=== PATIENT | female | born 2000 | race Caucasian/White ===

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

== ENCOUNTER → 2022-01-06 14:23 | Outpatient (CLI) | payer OTHER, MEDICAID, SELFPAY | PROVIDERS: Family Provider Family Medicine; PCP Family Medicine; Visit Provider Physician Assistant | DX: J02.9 Acute pharyngitis, unspecified (principal) | CPT/HCPCS: 87070; 87880 ==

== ENCOUNTER → 2022-06-08 11:02 | Outpatient (CLI) | payer OTHER, MEDICAID, SELFPAY ==
[2022-06-08 11:59] LABS: Strep Grp A by PCR Rapid Negative (Negative)
== END ==
PROVIDERS: Family Provider Family Medicine; PCP Family Medicine; Visit Provider Family Medicine
DX: J02.9 Acute pharyngitis, unspecified (principal)
CPT/HCPCS: 87070; 87147; 87651

== ENCOUNTER → 2023-05-16 10:23 | Outpatient (CLI) | payer OTHER, MEDICAID, SELFPAY ==
[2023-05-16 11:14] LABS: Add Manual Diff / Slide Review NO; Basophils Absolute Auto 0 /uL (0-100); Basophils Percent Auto 0.9 % (0-2); Eosinophils Absolute Auto 100 /uL (0-450); Eosinophils Percent Auto 1.1 % (2-4); Hematocrit 41.4 % (36-46); Hemoglobin 14.3 g/dL (12.0-16.0); Lymphocytes Absolute Auto 1900 /uL (1100-4500); Lymphocytes Percent Auto 34.5 % (25-40); Mean Corpuscular HGB Conc 34.4 % (30-36); Mean Corpuscular Hemoglobin 30.8 PG (26-34); Mean Corpuscular Volume 89.4 fL (80-100); Monocytes Absolute Auto 400 /uL (0-900); Monocytes Percent Auto 8.1 % (3-14); Neutrophils Absolute Auto 3000 /uL (1500-7000); Neutrophils Percent Auto 55.4 % (50-75); Platelet Count 263 X10^3/uL (150-400); Red Blood Cell Count 4.63 X10^6/uL (4.0-5.2); Red Cell Distribution Width 13.3 % (11.6-14.8); White Blood Cell Count 5.4 X10^3/uL (4.5-11.0)
[2023-05-16 11:39] LABS: Alanine Aminotransferase 19 IU/L (<35); Albumin 4.3 g/dL (3.5-5.0); Albumin Globulin Ratio 1.5 (1.0-2.8); Alkaline Phosphatase 58 U/L (38-126); Aspartate Aminotransferase 26 IU/L (14-36); Bilirubin Total 0.3 mg/dL (0.2-1.3); Blood Urea Nitrogen 12 mg/dL (7-17); Calcium 9.5 mg/dL (8.4-10.2); Carbon Dioxide 28 mmol/L (22-32); Chloride 104 mmol/L (98-107); Estimated Glomerular Filt Rate > 60 mL/min (>60); Globulin 2.9 g/dL (1.7-4.1); Glucose 95 mg/dL (70-100); HEMOLYSIS < 15 (0-50); Lipase 78 U/L (23-300); Potassium 4.4 mmol/L (3.4-5.1); Sodium 140 mmol/L (137-145); Total Protein 7.2 g/dL (6.3-8.2)
[2023-05-16 12:09] LABS: TSH w/ Reflex to FT4 1.78 uIU/mL (0.47-4.68)
== END ==
PROVIDERS: Family Provider Family Medicine; PCP Family Medicine; Referring Provider Family Medicine; Visit Provider Family Medicine
DX: R10.9 Unspecified abdominal pain (principal); R07.89 Other chest pain
CPT/HCPCS: 36415; 80053; 83690; 84443; 85025

== ENCOUNTER → 2023-07-14 13:39 | Outpatient (CLI) | payer OTHER, MEDICAID, SELFPAY | PROVIDERS: Family Provider Family Medicine; PCP Family Medicine; Visit Provider Family Medicine | DX: R30.9 Painful micturition, unspecified (principal) | CPT/HCPCS: 87210 ==

== ENCOUNTER 2023-08-30 23:12 | Emergency (ER) | payer SELFPAY ==
[2023-08-30 23:33] VITALS: BP 104/68; PULSE 77; RESP 18; TEMP 36.6; O2SAT 100; BMI 27.3
--- NOTE | 2023-08-30 23:50 | DI.RAD.S_ITS ---
PROCEDURE: XR KUB INDICATIONS: abd pain, constipation TECHNIQUE: One view of the abdomen acquired. COMPARISON: None. FINDINGS: Surgical changes and devices: None. Bowel: Bowel gas pattern is normal. Moderate colonic stool load. Soft tissues: No suspicious abdominal calcifications. Visualized solid organ contours appear normal in size. Bones: No suspicious bony lesions. IMPRESSION: Moderate colonic stool load. Dictated by: Bharathi Spence M.D. on 08/31/2023 at 0:08 Approved by: Bharathi Spence M.D. on 08/31/2023 at 0:08
[2023-08-31 00:59] VITALS: BP 107/65; PULSE 61; RESP 16; TEMP 37.2; O2SAT 97
--- NOTE | 2023-08-31 01:11 | ED_ITS ---
HPI - Abdominal Pain General Chief Complaint: Abdominal Pain Stated Complaint: bowel blockage, abd pain Time Seen by Provider: 08/30/23 23:20 Source: patient Mode of arrival: Family Vehicle History of Present Illness HPI narrative: Patient presents for abdominal pain and constipation. Seen yesterday at [facility] where she underwent labs and CT imaging. She was discharged with instructions to take magnesium oxide. Patient states that she took the magnesium oxide but has still not had a bowel movement and her pain is increasing. She is concerned that she may have a blockage. Reports nausea, denies vomiting. Related Data Previous Rx's Medication Instructions Recorded fluoxetine 40 mg capsule (Prozac) 40 mg PO DAILY #30 caps 07/14/23 trazodone 50 mg tablet 50 - 75 mg (1 - 1.5 x 50 mg) PO 07/14/23 DAILY PRN sleep #45 tabs metoclopramide HCl 10 mg tablet 10 mg PO Q6H PRN nausea and 08/31/23 (Reglan) vomiting #30 tabs Allergies Allergy/AdvReac Type Severity Reaction Status Date / Time Penicillins [PENICILLINS] Allergy Intermediate FAMILY IS Verified 07/14/23 13:08 ALLERGIC Review of Systems Review of Systems Narrative: Otherwise negative Patient History Medical History PTSD (post-traumatic stress disorder) Bursitis Right shoulder pain Sinusitis Healthy child Surgical History Anesthesia [place] teeth removed (~2014) No pertinent past surgical history Family History Father Hypertension Hyperlipidemia Mental health problem Mother Cancer Diabetes mellitus Brother Mental health problem Grandmother Diabetes mellitus Social History Smoking Status: Never smoker Smoking Status: Never smoker alcohol intake frequency: holidays/special occasions only Substance Use Type: marijuana Exam Initial Vital Signs Initial Vital Signs: Vital Signs Temperature 97.9 F 08/30/23 23:33 Pulse Rate 77 08/30/23 23:33 Respiratory Rate 18 08/30/23 23:33 Blood Pressure 104/68 08/30/23 23:33 Pulse Oximetry 100 08/30/23 23:33 Oxygen Delivery Method Room Air 08/30/23 23:33 Const: Awake, alert, no acute distress, nontoxic appearing GI: Atraumatic, soft, nontender, nondistended, no rebound, no guarding Skin: Warm, Dry, intact, no rashes Neuro: AO x3, CN II-XII grossly intact, moves all extremities Course Orders Ordered: ED Orders 08/30/23 23:50 XR KUB Stat Discontinued Medications Metoclopramide HCl (Metoclopramide Hcl 5 Mg Tablet) 10 mg PO NOW ONE Stop: 08/31/23 01:09 Last Admin: 08/31/23 01:15 Dose: 10 mg Documented By: DAGO Polyethylene Glycol/Electrolytes ([id number]/Sod Sulf,Bicarb,Cl/Kcl 4,000 Ml Solution) 4,000 ml PO NOW ONE Stop: 08/31/23 01:09 Last Admin: 08/31/23 01:15 Dose: 4,000 ml Documented By: DAGO Vital Signs Vital signs: Vital Signs - 8 hr 08/30/23 23:33 08/31/23 00:59 Temperature 97.9 F 98.9 F Pulse Rate 77 61 Respiratory Rate 18 16 Blood Pressure 104/68 107/65 Pulse Oximetry 100 97 Oxygen Delivery Method Room Air Room Air MDM - Abdominal Pain Differential Diagnosis Differential diagnosis: Likely abdominal pain, constipation and gastroenteritis MDM Narrative Medical decision making narrative: Persistent abdominal pain, known constipation. Seen yesterday at outside hospital with CT imaging performed. Records from [facility] reviewed. No indication for repeat imaging at this time. KUB confirms moderately large stool burden. Patient offered enema in the emergency department. She declined. Discharge with Reglan, which may help her nausea and constipation since it is promoted oil. Discharge with brandon. Discharge Plan Departure Patient Disposition: Home Clinical Impression: Constipation Instructions: DI for Constipation Prescriptions: New metoclopramide HCl [Reglan] 10 mg tablet 10 mg PO Q6H PRN (Reason: nausea and vomiting) Qty: 30 0RF No Action trazodone 50 mg tablet 50 - 75 mg PO DAILY PRN (Reason: sleep) Qty: 45 11RF fluoxetine [Prozac] 40 mg capsule 40 mg PO DAILY Qty: 30 0RF Referrals: Deshawn Bran DO [Primary Care Provider] - Stand Alone Forms: Patient Portal/API
[2023-08-31] MEDS: METOCLOPRAMIDE HCL 5 MG TABLET 10 MG PO (01:15)
[2023-08-31] MEDS: PEG3350/SOD SULF,BICARB,CL/KCL 4,000 ML SOLUTION 4000 ML PO (01:15)
== END 2023-08-31 01:30 | disposition home or self-care (01) ==
PROVIDERS: Emergency Provider Emergency Medicine; Family Provider Family Medicine; PCP Family Medicine
DX: K59.00 Constipation, unspecified (principal)
CPT/HCPCS: 74018; 99283

== ENCOUNTER → 2023-12-21 12:05 | Outpatient (CLI) | payer OTHER, MEDICAID, SELFPAY ==
[2023-12-21 13:06] LABS: Influenza A - CEPHEID Flu A NEGATIVE (NEGATIVE); Influenza B - CEPHEID Flu B NEGATIVE (NEGATIVE); Respiratory Syncytial Virus Negative (Negative)
[2023-12-21 13:10] LABS: COVID-19 CEPHEID 4-PLEX PCR Negative (Negative)
== END ==
PROVIDERS: Family Provider Family Medicine; PCP Family Medicine; Visit Provider Physician Assistant Surgical
DX: J02.9 Acute pharyngitis, unspecified (principal)
CPT/HCPCS: 87635; 87400 ×2; 87420; 0241U; 87070

== ENCOUNTER → 2024-05-23 14:44 | Outpatient (CLI) | payer OTHER, MEDICAID, SELFPAY ==
[2024-05-23 16:19] LABS: TSH w/ Reflex to FT4 1.48 uIU/mL (0.47-4.68)
== END ==
LOC: LAB 14:45
PROVIDERS: Family Provider Family Medicine; PCP Family Medicine; Referring Provider Physician Assistant; Visit Provider Physician Assistant
DX: R10.9 Unspecified abdominal pain (principal); G89.29 Other chronic pain; Z80.0 Family history of malignant neoplasm of digestive organs; K59.09 Other constipation; R63.4 Abnormal weight loss
CPT/HCPCS: 36415; 82784; 83013; 83516; 84443

== ENCOUNTER 2024-06-05 16:27 | Emergency (ER) | payer OTHER, MEDICAID, SELFPAY ==
[2024-06-05 16:31] VITALS: BP 160/76; PULSE 90; RESP 17; TEMP 36.6; O2SAT 100; BMI 26.9
[2024-06-05 17:16] LABS: Add Manual Diff / Slide Review NO; Basophils Absolute Auto 100 /uL (0-100); Basophils Percent Auto 1.1 % (0-2); Eosinophils Absolute Auto 100 /uL (0-450); Hematocrit 38.6 % (36-46); Hemoglobin 13.6 g/dL (12.0-16.0); Lymphocytes Absolute Auto 1900 /uL (1100-4500); Lymphocytes Percent Auto 25.5 % (25-40); Mean Corpuscular HGB Conc 35.1 % (30-36); Mean Corpuscular Hemoglobin 31.4 PG (26-34); Mean Corpuscular Volume 89.3 fL (80-100); Monocytes Absolute Auto 600 /uL (0-900); Neutrophils Absolute Auto 4600 /uL (1500-7000); Neutrophils Percent Auto 63.4 % (50-75); Platelet Count 236 X10^3/uL (150-400); Red Blood Cell Count 4.32 X10^6/uL (4.0-5.2); Red Cell Distribution Width 13.1 % (11.6-14.8); White Blood Cell Count 7.3 X10^3/uL (4.5-11.0)
[2024-06-05 17:25] LABS: Alanine Aminotransferase 13 IU/L (<35); Albumin 4.6 g/dL (3.5-5.0); Albumin Globulin Ratio 1.6 (1.0-2.8); Alkaline Phosphatase 56 U/L (38-126); Aspartate Aminotransferase 21 IU/L (14-36); BUN Creatinine Ratio 18.2 (6-22); Bilirubin Total 0.7 mg/dL (0.2-1.3); Blood Urea Nitrogen 12 mg/dL (7-17); Calcium 9.6 mg/dL (8.4-10.2); Carbon Dioxide 24 mmol/L (22-32); Chloride 107 mmol/L (98-107); Estimated Glomerular Filt Rate > 60 mL/min (>60); Globulin 2.9 g/dL (1.7-4.1); Glucose 86 mg/dL (70-100); HEMOLYSIS 15 (0-50); Lipase 74 U/L (23-300); Potassium 3.6 mmol/L (3.4-5.1); Sodium 138 mmol/L (137-145); Total Protein 7.5 g/dL (6.3-8.2)
--- NOTE | 2024-06-05 17:58 | DI.RAD.S_ITS ---
PROCEDURE: XR ABDOMEN 1V INDICATIONS: Abdominal pain and vomiting TECHNIQUE: One view of the abdomen acquired. COMPARISON: None. FINDINGS: Surgical changes and devices: Cholecystectomy clips. Bowel: Bowel gas pattern is normal. Soft tissues: No suspicious abdominal calcifications. Visualized solid organ contours appear normal in size. Bones: No suspicious bony lesions. IMPRESSION: Benign-appearing bowel gas pattern. Dictated by: Nanci Broussard M.D. on 06/05/2024 at 19:46 Approved by: Nanci Broussard M.D. on 06/05/2024 at 19:46
[2024-06-05 19:30] LABS: Bacteria Urine Few (2-10); Culture Indicated Urine Cult Not Indicated; Mucus Urine 2+ (Negative); RBC Urine None Seen (0-5/HPF); Squamous Epithelial Cell Urine 1-5 /HPF (0-5/HPF); Urine Volume 10mL (spun); WBC Urine 1-5/HPF (0-5/HPF)
[2024-06-05] MEDS: ACETAMINOPHEN 325 MG TABLET 650 MG PO (20:13)
--- NOTE | 2024-06-05 20:18 | ED.GENADULT ---
HPI - General Adult General Chief complaint: Abdominal Pain Stated complaint: abd pain, n/v Time Seen by Provider: 06/05/24 16:44 Source: patient Mode of arrival: Ambulatory History of Present Illness HPI narrative: Patient is a 23-year-old female who arrives the emergency department for upper abdominal pain and nausea and vomiting. Patient has had issues with her GI system for some time now. It has been several weeks. She was had multiple imaging studies to include CT scan and ultrasound. She has medication at home. No definitive diagnosis has been made. She has had her gallbladder removed after having an abnormal HIDA scan however states this is not changed her belly pain. She has an appointment tomorrow with a python django developer. She states that she can not hold anything down to include liquids or solids. She can hold down her medications. No fevers. The pain that she presents with today is same pain that she has had for the past several weeks. Related Data Home Medications Medication Instructions Recorded Confirmed nitrofurantoin 1 cap PO BID 05/15/24 05/27/24 monohydrate/macrocrystals 100 mg capsule ondansetron HCl 4 mg tablet 4 mg PO Q8H 05/15/24 05/27/24 oxycodone 5 mg tablet See Rx Instructions PO .COMPLEX 05/15/24 05/27/24 etonogestrel 68 mg subdermal subdermal 05/27/24 05/27/24 implant (Nexplanon) Previous Rx's Medication Instructions Recorded dicyclomine 20 mg tablet 20 mg PO QID #40 tabs 05/23/24 duloxetine 30 mg capsule,delayed 60 mg (2 x 30 mg) PO DAILY #60 caps 05/23/24 release meloxicam 15 mg tablet 15 mg PO DAILY #30 tabs 05/23/24 erythromycin 5 mg/gram (0.5 %) eye 0.5 inch EYE-BOTH TID 2 days #3.5 06/05/24 ointment grams promethazine 25 mg tablet 25 mg PO Q6H PRN nausea and 06/05/24 vomiting #14 tabs Allergies Allergy/AdvReac Type Severity Reaction Status Date / Time Penicillins [PENICILLINS] Allergy Intermediate FAMILY IS Verified 06/05/24 16:35 ALLERGIC Review of Systems Review of Systems Narrative: See HPI Patient History Medical History Family history of colon cancer PTSD (post-traumatic stress disorder) Bursitis Right shoulder pain Sinusitis Healthy child Surgical History (Updated 05/15/24 @ 09:03 by Deshawn Bran DO) Status post cholecystectomy Anesthesia [place] teeth removed (~2014) No pertinent past surgical history Family History Father Hypertension Hyperlipidemia Mental health problem Mother Cancer Diabetes mellitus Brother Mental health problem Grandmother Diabetes mellitus Social History Smoking Status: Never smoker Smoking Status: Never smoker alcohol intake frequency: holidays/special occasions only Substance Use Type: marijuana Exam Initial Vital Signs Initial Vital Signs: Vital Signs Temperature 98 F 06/05/24 16:31 Pulse Rate 90 06/05/24 16:31 Respiratory Rate 17 06/05/24 16:31 Blood Pressure 160/76 H 06/05/24 16:31 Pulse Oximetry 100 06/05/24 16:31 Oxygen Delivery Method Room Air 06/05/24 16:31 Const General: cooperative, comfortable and No ill appearing Resp Effort & Inspection: normal respiratory effort Cardio Rate: regular rate GI Inspection: normal to inspection and non-distended Palpation: soft, No firm, No guarding and No rigid Neuro General: patient alert and patient awake Extrem General: capillary refill normal Course Orders Ordered: ED Orders 06/05/24 16:59 Complete Blood Count AUTO DIFF Stat Comprehensive Metabolic Panel Stat Lipase Stat 06/05/24 17:58 XR abdomen 1V Stat 06/05/24 19:08 Urine Culture Stat Urine Microscopic Stat Discontinued Medications Acetaminophen (Acetaminophen 325 Mg Tablet) 650 mg PO NOW ONE Stop: 06/05/24 20:03 Last Admin: 06/05/24 20:13 Dose: 650 mg Documented By: Erythromycin (Erythromycin Ophth 1 Gm Oint) 1 applic EYE-LEFT NOW ONE Stop: 06/05/24 21:38 Last Admin: 06/05/24 21:41 Dose: 1 applic Documented By: Sodium Chloride (Normal Saline 0.9%) 1,000 mls @ 1,000 mls/hr IV BOLUS ONE Stop: 06/05/24 21:18 Last Infusion: 06/05/24 20:48 Dose: Infused Documented By: Admin: 06/05/24 20:26 Dose: 1,000 mls/hr Documented By: Ondansetron HCl (Ondansetron 4 Mg/2 Ml Inj) 4 mg IV NOW PRN PRN Reason: Nausea And Vomiting Ondansetron HCl (Ondansetron 4 Mg Odt) 4 mg PO NOW PRN PRN Reason: Nausea And Vomiting Vital Signs Vital signs: Vital Signs - 8 hr 06/05/24 16:31 Temperature 98 F Pulse Rate 90 Respiratory Rate 17 Blood Pressure 160/76 H Pulse Oximetry 100 Oxygen Delivery Method Room Air Medical Decision Making Medical Records Medical records reviewed: Yes I reviewed the patient's medical records. Lab Data Lab results reviewed: Yes I reviewed the patient's lab results. 06/05/24 16:59 06/05/24 16:59 Labs: Lab Results 06/05/24 06/05/24 Range/Units 16:59 19:08 WBC 7.3 (4.5-11.0) X10^3/uL RBC 4.32 (4.0-5.2) X10^6/uL Hgb 13.6 (12.0-16.0) g/dL Hct 38.6 (36-46) % MCV 89.3 (80-100) fL MCH 31.4 (26-34) PG MCHC 35.1 (30-36) % RDW 13.1 (11.6-14.8) % Plt Count 236 (150-400) X10^3/uL Neut % (Auto) 63.4 (50-75) % Lymph % (Auto) 25.5 (25-40) % [place] % (Auto) 8.0 (3-14) % Eos % (Auto) 2.0 (2-4) % Baso % (Auto) 1.1 (0-2) % Neut # (Auto) 4600 (5542-6077) /uL Lymph # (Auto) 1900 (7424-5608) /uL [place] # (Auto) 600 (0-900) /uL Eos # (Auto) 100 (0-450) /uL Baso # (Auto) 100 (0-100) /uL Sodium 138 (137-145) mmol/L Potassium 3.6 (3.4-5.1) mmol/L Chloride 107 (98-107) mmol/L Carbon Dioxide 24 (22-32) mmol/L BUN 12 (7-17) mg/dL Creatinine 0.66 (0.52-1.04) mg/dL Estimated GFR > 60 (>60) mL/min BUN/Creatinine Ratio 18.2 (6-22) Glucose 86 (70-100) mg/dL Calcium 9.6 (8.4-10.2) mg/dL Total Bilirubin 0.7 (0.2-1.3) mg/dL AST 21 (14-36) IU/L ALT 13 (<35) IU/L Alkaline Phosphatase 56 (38-126) U/L Total Protein 7.5 (6.3-8.2) g/dL Albumin 4.6 (3.5-5.0) g/dL Globulin 2.9 (1.7-4.1) g/dL Albumin/Globulin Ratio 1.6 (1.0-2.8) Lipase 74 (23-300) U/L Urine RBC None seen (0-5/HPF) Urine WBC 1-5/hpf (0-5/HPF) Ur Squamous Epith Cells 1-5 /hpf (0-5/HPF) Urine Bacteria Few (2-10) H (None) Urine Mucus 2+ H (Negative) Ur Culture Indicated? Cult not indicated Vol Urine Centrifuged 10ml (spun) Point of Care Testing Test Results Negative Urine Dip Bedside Urine Glucose Negative Bedside Urine Bilirubin - Negative Bedside Urine Ketone - Negative Urine Specific [place] 1.015 Bedside Urine Occult Blood - Negative Bedside Urine pH 6.5 Bedside Urine Protein +/- 15 Bedside Urine Urobilinogen - Negative Bedside Urine Nitrite - Negative Bedside Urine Leukocytes - Negative Esterase Point of care testing: Point of Care Testing Test Results Negative Urine Dip Bedside Urine Glucose Negative Bedside Urine Bilirubin - Negative Bedside Urine Ketone - Negative Urine Specific [place] 1.015 Bedside Urine Occult Blood - Negative Bedside Urine pH 6.5 Bedside Urine Protein +/- 15 Bedside Urine Urobilinogen - Negative Bedside Urine Nitrite - Negative Bedside Urine Leukocytes - Negative Esterase Imaging Data Abdominal x-ray: Radiologist's Impression: PROCEDURE: XR ABDOMEN 1V INDICATIONS: Abdominal pain and vomiting TECHNIQUE: One view of the abdomen acquired. COMPARISON: None. FINDINGS: Surgical changes and devices: Cholecystectomy clips. Bowel: Bowel gas pattern is normal. Soft tissues: No suspicious abdominal calcifications. Visualized solid organ contours appear normal in size. Bones: No suspicious bony lesions. IMPRESSION: Benign-appearing bowel gas pattern. MDM Narrative Medical decision making narrative: Patient has a benign exam and labs, vital signs, imaging studies here in the ER are all unremarkable. I do feel that we should hold on further advanced imaging such as CT scan. She was able to tolerate at least some amount of fluids as she was taking her medications at home. She was given fluids here in the ER. No further workup required in the emergency department and I advised her that she keep her appointment with her GI doctor scheduled for tomorrow. Discharge home with return precautions. Discharge Plan Departure Patient Disposition: Home Clinical Impression: Abdominal pain, Nausea Instructions: DI for Abdominal Pain-Adult, DI for Nausea -- Adult Activity Restrictions/Additional Instructions: Continue to take all of your medications as directed. It was important that you keep your scheduled appointment with the gastroenterology providers tomorrow. Contact your primary doctor for follow-up. Prescriptions: New promethazine 25 mg tablet 25 mg PO Q6H PRN (Reason: nausea and vomiting) Qty: 14 0RF erythromycin 5 mg/gram (0.5 %) ointment 0.5 inch EYE-BOTH TID 2 Days Qty: 3.5 2RF No Action oxycodone 5 mg tablet See Rx Instructions PO .COMPLEX Rx Instructions: orally 1/2 to 2 tabs ppo 6hr for pain; nitrofurantoin monohyd/m-cryst 100 mg capsule 1 cap PO BID Rx Instructions: 1 po BID x 7days ondansetron HCl 4 mg tablet 4 mg PO Q8H meloxicam 15 mg tablet 15 mg PO DAILY Qty: 30 0RF Rx Instructions: do not combine with other NSAIDS such as ibuprofen or aleve duloxetine 30 mg capsule,delayed release(DR/EC) 60 mg PO DAILY Qty: 60 1RF Rx Instructions: taper to start with 30mg x 1 week, then increase dicyclomine 20 mg tablet 20 mg PO QID Qty: 40 0RF Nexplanon 68 mg implant subdermal Referrals: Deshawn Bran DO [Primary Care Provider] - Stand Alone Forms: Patient Portal/API/Survey
[2024-06-05] MEDS: SODIUM CHLORIDE 0.9% 1,000 ML 1000 ML IV (20:26)
[2024-06-05] MEDS: ERYTHROMYCIN OPHTH 1 GM OINT 1 APPLIC EYE-LEFT (21:41)
== END 2024-06-05 21:42 | disposition home or self-care (01) ==
PROVIDERS: Emergency Medicine; Emergency Provider Emergency Medicine; Family Provider Family Medicine; PCP Family Medicine
DX: R10.10 Upper abdominal pain, unspecified (principal); R11.0 Nausea
CPT/HCPCS: 36415; 74018; 80053; 81003; 81015; 81025; 83690; 85025; 87086; 99284

== ENCOUNTER → 2024-06-12 08:48 | Outpatient (CLI) | payer OTHER, MEDICAID, SELFPAY ==
--- NOTE | 2024-06-12 08:50 | DI.RAD.S_ITS ---
PROCEDURE: FL GUIDED PICC PLACEMENT INDICATIONS: dehydration, picc placement COMPARISON: None. FINDINGS: PICC was placed by the intravenous therapy team from the right side. Fluoroscopic spot film demonstrates the tip of PICC projecting at the level of the darnell IMPRESSION: Tip of PICC projects t at the level of the darnell, approximating the superior cavoatrial junction. Dictated by: Brad Bañuelos M.D. on 06/12/2024 at 17:23 Approved by: Brad Bañuelos M.D. on 06/12/2024 at 17:24
== END ==
PROVIDERS: Family Provider Family Medicine; PCP Family Medicine; Referring Provider Family Medicine; Visit Provider Family Medicine
DX: E86.0 Dehydration (principal); R11.10 Vomiting, unspecified
CPT/HCPCS: 36573

== ENCOUNTER → 2024-06-13 11:30 | Oncology outpatient (ONC) | payer OTHER, MEDICAID, SELFPAY ==
[2024-06-12] MEDS: SODIUM CHLORIDE 0.9% 1,000 ML 1000 ML IV (11:20)
[2024-06-12 11:36] VITALS: BP 106/67; PULSE 72; RESP 18; TEMP 36.3; O2SAT 98
--- NOTE | 2024-06-12 14:19 | PC.NURSE ---
Patient had Right Upper Arm PICC line placed 06/12/24 @ [facility] By ARNOLDO CRISOSTOMO. Patient has an 18GA [place] Closed Ended Single Lumen (Non-Power) PICC. Verified with ARNOLDO Aviles placement, ok to use PICC cleared after procedure Verified with ARNOLDO Aviles R Upper Arm PICC measurements for placement -- PICC length 49cm with 4 cm visible outside insertion site.
--- NOTE | 2024-06-13 14:38 | PC.NURSE ---
[id number] Dr Bran's hub bander Juan F (extension # [phone]) reviewed Infusion center provider order form. Let her know that form has slots for patient name, , dx, ICD10, labs if needed, meds if needed, with date, dx/icd10, name of lab/med, frequency, stop date, rate/dose/route/volume/infusion time requirements (meds); Notified her patient still reporting nausea and vomiting and difficulty keeping medications down even with SL here. Requested order for PICC line dsg care/changes for the ongoing dressing needs. She reports Dr Bran out of office today and will return on Monday. Patient being seen Mon & Mon for IV Fluid infusions only at infusion room in acu and will return to oncology/infusion clinic & next week with dsg change not due till
--- NOTE | 2024-06-18 11:36 | PC.NURSE ---
Patient reports itching under PICC line Tegaderm, slight redness under dressing but no redness or rash noted outside of dressing border. Will use IV 3000 dressing for dressing change due 06/19/24. Patient reports some relief from IV zofran during infusions, still reports difficulty keeping down PO or SL meds at home.
--- NOTE | 2024-06-20 16:04 | PC.NURSE ---
Right Upper Arm Picc line dsg itching under dressing reported by patient, slightly pink under dsg noted by RN at dsg change. Used extra Skin Prep and [id number] dsg for dsg change to see if it improves itching or pink change to skin. No edema or breakdown noted to site or under dsg.
--- NOTE | 2024-07-04 11:19 | ONC.SCHED ---
Patient was asked if she could change her appt time from 11:00 to 10:30 and agreed. Pt no showed, no phone call.
--- NOTE | 2024-07-04 14:55 | PC.NURSE ---
Patient scheduled for appointment @ oncology/infusion center 07/04/24 no show, no call for appointment. Patient was due for a PICC Line Dsg change during appointment today. Notified ACU Coordinator that patient has appointment on Friday 07/06 for IV Fluids, Zofran if needed via PICC line and that patient will also need PICC line dsg changed that day. Last PICC dsg change done 06/26/24
--- NOTE | 2024-07-12 18:18 | PC.NURSE ---
Patient recieved 1 liter NS IVF bolus this afternoon
--- NOTE | 2024-07-22 17:42 | PC.NURSE ---
This nurse attempted to reach patient to verify upcoming appts as she has been a no show the last 2 times. Left a message with PCP office to contact her as no answer by patient and voicemail not set up. This nurse did leave a message with the Grandmother (person to notify) asking patient to contact the acute care floor and cancel her appts if she will not come. Patient had a visit with Dr. Bran today and a referral is entered for home health.
== END ==
PROVIDERS: Family Provider Family Medicine; PCP Family Medicine; Referring Provider Family Medicine; Visit Provider Family Medicine
DX: K90.0 Celiac disease (principal); E86.0 Dehydration; R11.2 Nausea with vomiting, unspecified
CPT/HCPCS: 36573; 96360

== ENCOUNTER → 2024-06-20 15:22 | Outpatient (ROUT) | payer OTHER, MEDICAID, SELFPAY | PROVIDERS: Family Provider Family Medicine; PCP Family Medicine; Visit Provider Internal Medicine | DX: K90.0 Celiac disease (principal) | CPT/HCPCS: 82784; 83516 ==

== ENCOUNTER → 2024-12-10 16:06 | Outpatient (CLI) | payer OTHER, SELFPAY | PROVIDERS: Physician Assistant; Family Provider Family Medicine; PCP Family Medicine; Referring Provider Family Medicine; Visit Provider Family Medicine | DX: N92.6 Irregular menstruation, unspecified (principal) | CPT/HCPCS: 36415; 84702 ==

== ENCOUNTER → 2025-01-07 11:30 | Outpatient (CLI) | payer OTHER, SELFPAY ==
[2025-01-07 12:21] LABS: Add Manual Diff / Slide Review NO; Basophils Absolute Auto 0 /uL (0-100); Basophils Percent Auto 0.3 % (0-2); Eosinophils Absolute Auto 0 /uL (0-450); Eosinophils Percent Auto 0.2 % (2-4); Hematocrit 41.3 % (36-46); Hemoglobin 14.8 g/dL (12.0-16.0); Lymphocytes Absolute Auto 1800 /uL (1100-4500); Lymphocytes Percent Auto 20.5 % (25-40); Mean Corpuscular HGB Conc 35.8 % (30-36); Mean Corpuscular Hemoglobin 31.9 PG (26-34); Mean Corpuscular Volume 89.1 fL (80-100); Monocytes Absolute Auto 500 /uL (0-900); Monocytes Percent Auto 5.7 % (3-14); Neutrophils Absolute Auto 6400 /uL (1500-7000); Neutrophils Percent Auto 73.3 % (50-75); Platelet Count 231 X10^3/uL (150-400); Red Blood Cell Count 4.64 X10^6/uL (4.0-5.2); Red Cell Distribution Width 12.7 % (11.6-14.8); White Blood Cell Count 8.7 X10^3/uL (4.5-11.0)
[2025-01-07 15:13] LABS: Hepatitis B Surface Antigen NEGATIVE s/c (NEGATIVE); Rubella Antibody IgG 53.6 IU/mL (>15)
[2025-01-07 15:29] LABS: HIV 1 & 2 Ab/Ag 4th Gen Combo NEGATIVE (NEGATIVE); Hep C Virus Ab w/Reflex Quant NEGATIVE s/c (NEGATIVE)
[2025-01-08 03:36] LABS: Varicella IgG Antibody Reactive (Non Reactive)
== END ==
PROVIDERS: Family Medicine; PCP Family Medicine; Referring Provider Family Medicine; Visit Provider Family Medicine
DX: Z34.00 Encounter for supervision of normal first pregnancy, unspecified trimester (principal)
CPT/HCPCS: 36415; 80055; 86787; 86803; 86850; 86900; 86901; 87389

== ENCOUNTER → 2025-02-04 10:25 | Outpatient (CLI) | payer OTHER, SELFPAY ==
[2025-02-04 11:26] LABS: Appearance Urine UA CLEAR; Bilirubin Urine UA NEGATIVE (NEGATIVE); Color Urine UA YELLOW; Glucose Urine UA NEGATIVE (Negative); Ketones Urine UA NEGATIVE (NEGATIVE); Leukocyte Esterase Urine UA NEGATIVE (NEGATIVE); Nitrite Urine UA NEGATIVE (Negative); Occult Blood Urine UA NEGATIVE (Negative); Protein Urine UA NEGATIVE (Negative); Specific Gravity Urine UA 1.010 (1.000-1.035); Urobilinogen Urine UA 1.0 E.U./dL (0.2)
[2025-02-04 11:32] LABS: pH Urine UA 6.5 (4.5-8.0)
[2025-02-04 22:40] LABS: Natera Collection Specimen Collected
== END ==
PROVIDERS: PCP Family Medicine; Referring Provider Family Medicine; Visit Provider Physician Assistant
DX: Z34.01 Encounter for supervision of normal first pregnancy, first trimester (principal)
CPT/HCPCS: 36415; 81003; 87086

== ENCOUNTER 2025-03-07 16:56 | Emergency (ER) | payer OTHER, SELFPAY ==
[2025-03-07 17:33] VITALS: BP 120/74; PULSE 55; RESP 14; TEMP 36.1; O2SAT 100; BMI 30.2
--- NOTE | 2025-03-07 17:43 | DI.US.S_ITS ---
PROCEDURE: US OB >= 14 WEEKS FETUS INDICATIONS: abdominal pain OUTSIDE/PRIOR DATING DATA: Working OSVALDO is 08/20/2025 TECHNIQUE: Real-time scanning was performed of the fetus, with image documentation and biometric measurements. COMPARISON: None. FINDINGS: General: A single living intrauterine gestation is present. Presentation: Vertex. Placenta: Placental position is anterior , without previa. Single deepest vertical pocket is 4.8 cm. heart rate: 141 beats per minute. Maternal cervical canal: 2.8 cm long. Normal lower limit is 2.5 cm. biometrics: Biparietal diameter: 3.2 cm, 16 weeks Head circumference: 12.9 cm, 16 weeks and 4 days Abdominal circumference: 10.2 cm, 16 weeks and 1 day Femur length: 2.2 cm, 16 weeks and 3 days Clinically estimated gestational age: 15 weeks and 2 days Composite gestational age from present scan: 16 weeks and 2 days Estimated weight and percentile: 153 g, 96% Right ovarian cyst measures 1.9 x 1.9 cm. Color and spectral flows are seen in the parenchyma. Left ovary was not identified. IMPRESSION: Intrauterine gestation with cardiac motion. EFW is greater than expected at the 96 percentile using the working OSVALDO. Anatomic survey recommended at 20 weeks with reassessment for growth. No acute abnormality to explain abdominal pain. Approved by: Eric Middleton M.D. on 03/07/2025 at 18:35
[2025-03-07 18:33] LABS: Add Manual Diff / Slide Review NO; Hematocrit 38.7 % (36-46); Hemoglobin 13.7 g/dL (12.0-16.0); Lymphocytes Absolute Auto 2100 /uL (1100-4500); Mean Corpuscular HGB Conc 35.3 % (30-36); Mean Corpuscular Hemoglobin 31.9 PG (26-34); Mean Corpuscular Volume 90.2 fL (80-100); Platelet Count 232 X10^3/uL (150-400)
[2025-03-07 18:56] LABS: Alanine Aminotransferase 14 IU/L (<35); Albumin 4.3 g/dL (3.5-5.0); Albumin Globulin Ratio 1.4 (1.0-2.8); Alkaline Phosphatase 51 U/L (38-126); Blood Urea Nitrogen 9 mg/dL (7-17); Calcium 9.2 mg/dL (8.4-10.2); Carbon Dioxide 25 mmol/L (22-32); Chloride 102 mmol/L (98-107); Estimated Glomerular Filt Rate > 60 mL/min (>60); Globulin 3.0 g/dL (1.7-4.1); Glucose 83 mg/dL (70-99); HEMOLYSIS < 15 (0-50); Lipase 52 U/L (23-300); Potassium 3.8 mmol/L (3.4-5.1); Sodium 135 mmol/L (137-145); Total Protein 7.3 g/dL (6.3-8.2)
[2025-03-07 20:17] LABS: HCG Quantitative /Beta subunit 25994 mIU/mL
[2025-03-07 20:46] LABS: Culture Indicated Urine Specimen Cultured
== END 2025-03-07 21:51 | disposition left against medical advice (07) ==
PROVIDERS: Family Medicine; Emergency Provider Emergency Medicine; PCP Family Medicine
DX: O26.892 Other specified pregnancy related conditions, second trimester (principal); R10.9 Unspecified abdominal pain; Z3A.15 15 weeks gestation of pregnancy
CPT/HCPCS: 76811; 80053; 81003; 81015; 83690; 84702; 85025; 86900; 86901; 87086; 99281

== ENCOUNTER → 2025-04-09 08:38 | Outpatient (CLI) | payer OTHER, SELFPAY ==
--- NOTE | 2025-04-09 08:39 | DI.US.S_ITS ---
PROCEDURE: US OB >= 14 WEEKS FETUS INDICATIONS: ANATOMY OUTSIDE/PRIOR DATING DATA: Provided working OSVALDO is 08/27/2025 TECHNIQUE: Real-time scanning was performed of the fetus, with image documentation and biometric measurements. COMPARISON: [facility], OB >= 14 WEEKS FETUS, 03/07/2025, 18:01. FINDINGS: General: A single living intrauterine gestation is present. Presentation: Variable. Placenta: Placental position is anterior , without previa. Amniotic fluid index: 12.2 cm, normal range is 5-24 cm. Single deepest vertical pocket is 4.3 cm. heart rate: 133 beats per minute. Maternal cervical canal: 3.4 cm long. Normal lower limit is 2.5 cm. biometrics: Biparietal diameter: 4.8 cm, 20 weeks and 4 days Head circumference: 17.7 cm, 20 weeks and 1 day Abdominal circumference: 17.3 cm, 22 weeks and 2 days Femur length: 3.3 cm, 20 weeks and 1 day Clinically estimated gestational age: 20 weeks and 0 days Composite gestational age from present scan: 20 weeks and 6 days Estimated weight and percentile: 405 g, 96% Anatomic survey: Neuro: Ventricles are non-dilated at less than 10 mm. Cisterna magna is normal at 3-11 mm. Cerebellum is normal in size and morphology. Nuchal skin fold: Normal at less than 6 mm between 14-21 weeks gestational age. Face: Nose and lips, facial profile are normal. Spine: Lower spine was not well seen, including the sacrum Heart: 4-chambered heart is present, with normal ventricular outflow tracts. Diaphragm: Diaphragm is intact. Stomach: Left-sided stomach is present. Kidneys: No hydronephrosis. Normal is less than 5 mm in 2nd trimester, less than 7 mm in 3rd trimester. Cord: 3-vessel cord has orthotopic insertion. Bladder: Normal in size. Extremities: All 4 extremities identified. IMPRESSION: Intrauterine gestation with cardiac motion. Normal VERNON. EFW is greater than expected at the 96 percentile. No significant abnormalities on routine anatomic survey, however the lower spine and sacrum were not well seen. Follow-up recommended to reassess anatomy and growth. Dictated by: Eric Middleton M.D. on 04/10/2025 at 9:42 Approved by: Eric Middleton M.D. on 04/10/2025 at 9:46
== END ==
LOC: US 08:38
PROVIDERS: PCP Family Medicine; Referring Provider Family Medicine; Visit Provider Family Medicine
DX: Z36.89 Encounter for other specified antenatal screening (principal); Z3A.20 20 weeks gestation of pregnancy
CPT/HCPCS: 76811

== ENCOUNTER 2025-05-12 16:23 | Observation (INO) | payer OTHER, SELFPAY ==
[2025-05-12 17:25] LABS: Appearance Urine UA CLEAR; Bilirubin Urine UA NEGATIVE (NEGATIVE); Color Urine UA YELLOW; Glucose Urine UA NEGATIVE (Negative); Ketones Urine UA NEGATIVE (NEGATIVE); Leukocyte Esterase Urine UA TRACE (NEGATIVE); Nitrite Urine UA NEGATIVE (Negative); Occult Blood Urine UA NEGATIVE (Negative); Protein Urine UA TRACE (Negative); Specific Gravity Urine UA 1.025 (1.000-1.035); Urobilinogen Urine UA 1.0 E.U./dL (0.2)
[2025-05-12] MEDS: LACTATED RINGERS 1,000 ML 1000 ML IV (17:25)
[2025-05-12 17:37] LABS: pH Urine UA 6.5 (4.5-8.0)
[2025-05-12 17:38] LABS: Culture Indicated Urine Specimen Cultured
[2025-05-12 17:40] LABS: Add Manual Diff / Slide Review NO; Hematocrit 36.2 % (36-46); Hemoglobin 12.9 g/dL (12.0-16.0); Lymphocytes Absolute Auto 1700 /uL (1100-4500); Mean Corpuscular HGB Conc 35.7 % (30-36); Mean Corpuscular Hemoglobin 33.2 PG (26-34); Mean Corpuscular Volume 92.9 fL (80-100); Platelet Count 225 X10^3/uL (150-400)
[2025-05-12 17:48] LABS: Alanine Aminotransferase 18 IU/L (<35); Albumin 3.9 g/dL (3.5-5.0); Albumin Globulin Ratio 1.2 (1.0-2.8); Alkaline Phosphatase 73 U/L (38-126); Blood Urea Nitrogen 6 mg/dL (7-17); Calcium 8.7 mg/dL (8.4-10.2); Carbon Dioxide 20 mmol/L (22-32); Chloride 106 mmol/L (98-107); Estimated Glomerular Filt Rate > 60 mL/min (>60); Globulin 3.2 g/dL (1.7-4.1); Glucose 85 mg/dL (70-99); HEMOLYSIS 23 (0-50); Potassium 3.3 mmol/L (3.4-5.1); Sodium 134 mmol/L (137-145); Total Protein 7.1 g/dL (6.3-8.2)
== END 2025-05-12 18:25 | disposition home or self-care (01) ==
LOC: LABOR 16:26
PROVIDERS: Admitting Provider Obstetrics & Gynecology; PCP Family Medicine; Referring Provider Obstetrics & Gynecology; Visit Provider Obstetrics & Gynecology
DX: O26.892 Other specified pregnancy related conditions, second trimester (principal); R11.2 Nausea with vomiting, unspecified; R19.7 Diarrhea, unspecified; R10.9 Unspecified abdominal pain; M54.9 Dorsalgia, unspecified; Z3A.24 24 weeks gestation of pregnancy
CPT/HCPCS: 59025; 80053; 81001; 85025; 87086; 96360; G0378; G0379; J7120

== ENCOUNTER 2025-05-21 12:00 | Outpatient (CLI) | payer MEDICAID, SELFPAY ==
--- NOTE | 2025-05-21 12:43 | P.TNLD_ITS ---
Visit Information Visit Information Date of evaluation: 05/21/25 Primary OB Provider: Edi Rushing Reason for Evaluation: Yes other Comments/Additional reasons for admission: 24-year-old G1 at GA 26+0 weeks. Decreased movement starting 2 days ago. Call triage line was advised to come to Center for evaluation yesterday. Presenting today for NST. course notable for anxiety/depression (not currently on medication). Recent increased stress with passing of father 2 days ago. [facility] Medical History (Updated 05/21/25 @ 17:11 by Edi Rushing MD) Bursitis Right shoulder pain Sinusitis Surgical History (Updated 01/02/25 @ 08:52 by Jamilah Beckwith, RN) History of appendectomy Status post cholecystectomy S/P PICC central line placement Anesthesia [place] teeth removed (~2014) Family History (Updated 01/02/25 @ 15:21 by Jamilah Beckwith, RN) Father Hypertension Hyperlipidemia Mental health problem COPD (chronic obstructive pulmonary disease) Substance abuse Depression Mother Cancer Diabetes mellitus Ovarian cancer Colon cancer Brother Sheppton's disease Depression Anxiety Thyroid disease Grandmother Diabetes mellitus Thyroid disease Hyperlipidemia Grandmother Thyroid disease Anxiety Depression Grandfather Alcoholism Social History marital status: unmarried,living together number of children: 0 household members: significant other lives independently: Yes caregiver/support person: No housing: house pets and animals: Yes (cat & dog) education level: college (some college) 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, works as hospice caregiver) special bertha needs: No travel history: over 6 months ago seatbelt use: always helmet use: Yes water heater temp set < 120 deg: Yes working smoke detector in home: Yes fire extinguisher in home: Yes carbon monox detector in home: Yes firearms in home: No do you feel safe at home: Yes second hand exposure: No alcohol intake: former (~2/week when not ) substance use type: marijuana (counseled not to use while or ) during the past year weight has: other (wide fluctuations, back to baseline) well-balanced diet: daily or most days daily servings fruits/ve or more times/day caffeine: Yes (counseled on 200mg limit) Type(s) of exercise: walking (average 5-6 miles/day) Evaluation Evaluation Baseline heart rate: 130 Variability: Moderate (6-25) monitor accelerations: Present Monitor Decelerations: Absent Category of Tracing: Reactive Status: Category l Diagnosis, Plan/Disposition Final Diagnosis (1) with 26 completed weeks gestation: Status: Acute (2) Decreased movement: Status: Acute Plan/Disposition Plan: NST reactive with category 1 strip. Discharge home, follow-up in 2 weeks for routine care. OB Disposition: home
== END 2025-05-21 12:50 | disposition home or self-care (01) ==
LOC: LABOR 12:17 → OB 05-22 07:27
PROVIDERS: PCP Family Medicine; Referring Provider Family Medicine; Visit Provider Family Medicine
DX: O36.8120 Decreased fetal movements, second trimester, not applicable or unspecified (principal); Z3A.26 26 weeks gestation of pregnancy
CPT/HCPCS: 59025; G0378; G0379

== ENCOUNTER → 2025-06-04 10:52 | Outpatient (CLI) | payer OTHER, SELFPAY ==
[2025-06-04 12:31] LABS: Hematocrit 35.2 % (36-46); Hemoglobin 12.5 g/dL (12.0-16.0)
[2025-06-04 13:03] LABS: GTT (PREG) 1 Hour PP 50gm Dose 100 mg/dL (76-139)
== END ==
PROVIDERS: PCP Family Medicine; Referring Provider Family Medicine; Visit Provider Family Medicine
DX: Z34.92 Encounter for supervision of normal pregnancy, unspecified, second trimester (principal); Z3A.26 26 weeks gestation of pregnancy
CPT/HCPCS: 36415; 82950; 85014; 85018

== ENCOUNTER → 2025-06-11 11:05 | Outpatient (CLI) | payer OTHER, SELFPAY ==
--- NOTE | 2025-06-11 11:06 | DI.US.S_ITS ---
PROCEDURE: US OB LIMITED
== END ==
LOC: US 11:06
PROVIDERS: PCP Family Medicine; Referring Provider Family Medicine; Visit Provider Family Medicine
DX: O36.63X0 Maternal care for excessive fetal growth, third trimester, not applicable or unspecified (principal); Z3A.29 29 weeks gestation of pregnancy
CPT/HCPCS: 76815

== ENCOUNTER 2025-06-20 14:21 | Observation (INO) | payer OTHER, SELFPAY ==
--- NOTE | 2025-06-20 15:08 | DI.US.S_ITS ---
PROCEDURE: US OB LIMITED INDICATIONS: cervical length, VERNON, baby position, labor OUTSIDE/PRIOR DATING DATA: Working OSVALDO: 08/27/2025 TECHNIQUE: Real-time scanning was performed of the fetus, with image documentation. Endovaginal scanning: Performed for additional evaluation of the cervix COMPARISON: [facility], OB >= 14 WEEKS FETUS, 04/09/2025, 8:50. formerly [facility] OB >= 14 WEEKS FETUS, 03/07/2025, 18:01. formerly [facility] OB LIMITED, 06/11/2025, 11:15. FINDINGS: A single live intrauterine gestation is present. Presentation: Breech. Placenta: Placental position is anterior, without previa. Amniotic fluid index: 9.7 cm, normal range is 5-24 cm. Single deepest vertical pocket is 4.4 cm. heart rate: 132 beats per minute. Maternal cervical canal: 3.6 cm long. Normal lower limit is 2.5 cm. No definite funneling of the internal cervical os can be seen. IMPRESSION: The cervical length is 3.6 cm. The VERNON is within normal limits at 9.7 cm. The fetus is in breech presentation. Dictated by: Allan Terrell M.D. on 06/20/2025 at 16:11 Approved by: Allan Terrell M.D. on 06/20/2025 at 16:13
--- NOTE | 2025-06-20 16:57 | P.TNLD_ITS ---
Visit Information Visit Information Date of evaluation: 06/20/25 Primary OB Provider: Edi Rushing Reason for Evaluation: Yes rule out labor Comments/Additional reasons for admission: 24-year-old at [place] 30+2 weeks presenting for vaginal discharge and pelvic pain. Reports persistent thick, mucosy discharge over past few days. Developed constant pressure in pelvis this morning that became cyclic every 10-15 min, primarily on right side. Advised to come in to L&D for further evaluation. Endorses normal movement. Denies vaginal bleeding or denies leakage of fluid. course notable for anxiety/depression managed without medication. [facility] Medical History (Updated 06/20/25 @ 18:01 by Edi Rushing MD) Bursitis Right shoulder pain Sinusitis Surgical History (Updated 01/02/25 @ 08:52 by Jamilah Beckwith, KRANTHI) History of appendectomy Status post cholecystectomy S/P PICC central line placement Anesthesia [place] teeth removed (~2014) Family History (Updated 01/02/25 @ 15:21 by Jamilah Beckwith, KRANTHI) Father Hypertension Hyperlipidemia Mental health problem COPD (chronic obstructive pulmonary disease) Substance abuse Depression Mother Cancer Diabetes mellitus Ovarian cancer Colon cancer Brother [place]'s disease Depression Anxiety Thyroid disease Grandmother Diabetes mellitus Thyroid disease Hyperlipidemia Grandmother Thyroid disease Anxiety Depression Grandfather Alcoholism Social History marital status: unmarried,living together number of children: 0 household members: significant other lives independently: Yes caregiver/support person: No housing: house pets and animals: Yes (cat & dog) education level: college (some college) occupational status: employed and student current occupational exposures/hazards: Yes (hospital pharmacy technician school, works as hospice caregiver) special bertha needs: No travel history: over 6 months ago seatbelt use: always helmet use: Yes water heater temp set < 120 deg: Yes working smoke detector in home: Yes fire extinguisher in home: Yes carbon monox detector in home: Yes firearms in home: No do you feel safe at home: Yes second hand exposure: No alcohol intake: former (~2/week when not ) substance use type: marijuana (counseled not to use while or ) during the past year weight has: other (wide fluctuations, back to baseline) well-balanced diet: daily or most days daily servings fruits/ve or more times/day caffeine: Yes (counseled on 200mg limit) Type(s) of exercise: walking (average 5-6 miles/day) Review of Systems Review of Systems ROS: Yes All systems reviewed with the patient and are negative except as otherwise documented Exam Narrative Exam Narrative: General: Well-nourished, no distress HEENT: NC/AT, EOMI, moist mucous membranes CV: RRR, normal S1 S2, no m/g/r Resp: CTAB Abd: Gravid, soft, NTND, +BS : Normal appearing external female genitalia, vaginal mucosa pink and moist with moderate-significant thick white discharge, cervix visually closed without discharge Ext: Full ROM, no edema Skin: No rash or lesions Neuro: A&O x3, normal tone, no focal deficits Objective Imaging US OB Limited: Radiologist's impression: US OB LIMITED FINDINGS: A single live intrauterine gestation is present. Presentation: Breech. Placenta: Placental position is anterior, without previa. Amniotic fluid index: 9.7 cm, normal range is 5-24 cm. Single deepest vertical pocket is 4.4 cm. heart rate: 132 beats per minute. Maternal cervical canal: 3.6 cm long. Normal lower limit is 2.5 cm. No def inite funneling of the internal cervical os can be seen. IMPRESSION: The cervical length is 3.6 cm. The VERNON is within normal limits at 9.7 cm. The fetus is in breech presentation. Dictated by: Allan Tererll M.D. on 06/20/2025 at 16:11 Approved by: Allan Terrell M.D. on 06/20/2025 at 16:13 Evaluation Evaluation Baseline heart rate: 130 Variability: Moderate (6-25) monitor accelerations: Present Monitor Decelerations: Variable Category of Tracing: Reactive Status: Category l Cervical dilation (cm): 0 Cervical effacement (%): 0 station: -4 Non-invasive Membranes Rupture Test: negative Diagnosis, Plan/Disposition Final Diagnosis (1) Bacterial vaginosis in : Status: Acute (2) UTI (urinary tract infection) in in third trimester: Status: Acute (3) with 30 completed weeks gestation: Status: Acute Plan/Disposition Plan: Speculum exam notable for copious white discharge clinically consistent with bacterial vaginosis, confirmed by presence of clue cells on wet prep No contractions on toco, closed cervix on exam and normal cervical length on ultrasound reassuring against labor UA from triage last month suspicious for UTI but culture did not grow any specific bacteria We will treat both BV and UTI given risk of labor and Seven day course of metronidazole mg 500 b.i.d. and nitrofurantoin 100 mg b.i.d. sent to pharmacy Discharge home, follow-up for routine care in 10 days OB Disposition: home
[2025-06-20 18:10] LABS: Urine N gonorrhoeae NOT DETECTED
[2025-06-20 18:12] LABS: Urine Chlamydia NOT DETECTED
== END 2025-06-20 17:06 | disposition home or self-care (01) ==
PROVIDERS: Admitting Provider Family Medicine; PCP Family Medicine; Referring Provider Family Medicine; Visit Provider Family Medicine
DX: O23.593 Infection of other part of genital tract in pregnancy, third trimester (principal); O23.43 Unspecified infection of urinary tract in pregnancy, third trimester; N39.0 Urinary tract infection, site not specified; Z3A.30 30 weeks gestation of pregnancy
CPT/HCPCS: 59025; 76815; 76817; 84112; 87210; 87491; 87591; G0378; G0379